=== PATIENT | female | born 1980 | race Caucasian/White ===

== ENCOUNTER 2016-06-26 08:07 | Emergency (ER) | payer OTHER ==
[~2016-06-26] VITALS: Ht 175.3 cm; Wt 80.7 kg
[2016-06-26 08:18] VITALS: BP 118/69
[2016-06-26] MEDS ORDERED: PRENTAB52 PO (08:24)
[2016-06-26 08:58] LABS: BASO % 0.7 % (0.0-1.0); EOS # 0.1 K/mm3 (0.0-0.50); EOS % 0.9 % (0.0-3.0); LARGE UNSTAINED CELL # 0.2 K/mm3 (0.0-0.4); LARGE UNSTAINED CELL % 2.3 % (0.0-4.0); LYMPH # 2.5 K/mm3 (1.5-4.5); MEAN CORPUSCULAR HEMOGLOBIN 31.5 pg (27.0-33.0); MEAN CORPUSCULAR HGB CONC 32.9 g/dl (32.0-36.5); MEAN CORPUSCULAR VOLUME 95.7 fl (80.0-96.0); MONO # 0.5 K/mm3 (0.0-0.8); MONO % 6.5 % (0.0-5.0); NEUTROPHILS # 4.4 K/mm3 (1.8-7.7); NEUTROPHILS % 58.6 % (36.0-66.0); PLATELET COUNT, AUTOMATED 283 k/mm3 (150-450); RED CELL DISTRIBUTION WIDTH 12.1 % (11.5-14.5); WHITE BLOOD COUNT 7.4 K/mm3 (4.0-10.0)
--- NOTE | 2016-06-26 10:47 | REP ---
Clinical: Pelvic pain and cramping for dating and viability. Technique: Transabdominal and transvaginal first trimester obstetrical ultrasound with color Doppler evaluation. Findings: Heterogeneous anteverted uterus measures 9.5 x 3.9 x 6.6 cm. The endometrial complex is thickened to 14.2 mm suggesting decidual reaction and a small presumed gestational sac with mean sac diameter of 3.8 mm corresponds to 5 weeks 1 day gestational age. No associated yolk sac or pole identified. Left ovary is normal in appearance and vascularity without torsion and measures 2.5 x 1.4 x 3.2 cm; RI equal 0.63. The right ovary is normal in vascularity without torsion and measures 4.3 x 3.3 x 3.9 cm; RI equal 0.42. 3.5 cm right ovarian cyst may reflect corpus luteum. Trace pelvic free fluid noted. Impression: 1. Thickened endometrium with possible small empty gestational sac. Differential diagnosis includes early and pseudogestational sac. Ectopic cannot be excluded. Correlation with serial HCG levels and repeat ultrasound may be warranted. 2. No evidence for ovarian torsion. 3.5 cm right ovarian cyst possible corpus luteum. Signed by Jimmy Mcdonald MD 06/26/2016 10:38 A
== END 2016-06-26 12:04 | disposition home or self-care (01) ==
LOC: M ED 08:38
DX: O23.90 Unspecified genitourinary tract infection in pregnancy, unspecified trimester (principal); Z87.59 Personal history of other complications of pregnancy, childbirth and the puerperium; O09.529 Supervision of elderly multigravida, unspecified trimester; O34.80 Maternal care for other abnormalities of pelvic organs, unspecified trimester; O99.89 Other specified diseases and conditions complicating pregnancy, childbirth and the puerperium; R93.8 Abnormal findings on diagnostic imaging of other specified body structures; Z79.899 Other long term (current) drug therapy

== ENCOUNTER → 2016-06-29 | Outpatient (CLI) | payer OTHER ==
[~2016-06-29] MED LIST: PRENTAB52 PO
--- NOTE | 2016-06-29 18:05 | REP ---
Emergency first trimester OB sonography: History: Gestational sac without IUP seen in the office. Question ectopic. Comparison sonography 06/26/2016 showed similar findings. Today's sonographic findings: Transabdominal and transvaginal scanning are performed. An intrauterine gestational sac is noted. This has dimensions of 8.3 x 9.7 x 4.9 cm. This corresponds with a 7-iisu-5-day gestational age estimate based on sac size diameter. No embryonic pole or yolk sac is visible. The intrauterine gestational sac appears more developed than on 06/26/2016 but no yolk sac or embryonic pole is visualized. We cannot confirm viability. No free fluid is noted. There is a 4.1 x 3.0 x 3.4 cm cystic area in the right ovary visible today. Right ovarian dimensions 5.7 x 3.5 x 4.0 cm inclusive of this. There is a 1.3 cm cystic area in the left ovary today. Left ovarian dimensions are 2.6 x 1.7 x 2.7 cm. Resistive indices are 0.5 and 0.3 in the right and left ovary respectively by Doppler. Impression: Sonographic findings remain nonspecific. There is a gestational sac in the uterine endometrium however no yolk sac or embryonic pole is seen. Early IUP versus blighted ovum. No direct evidence of ectopic however this cannot be completely excluded. There is a 4.1 cm simple appearing cyst in the right ovary. Signed by Job Carcamo MD 06/29/2016 06:07 P
== END ==
LOC: M RAD 16:36
PROVIDERS: ATTEND Student in an Organized Health Care Education/Training Program
DX: Z36 Encounter for antenatal screening of mother (principal)

== ENCOUNTER → 2016-07-09 | Outpatient (CLI) | payer OTHER ==
--- NOTE | 2016-07-09 13:30 | REP ---
FIRST TRIMESTER OB ULTRASOUND AND ENDOVAGINAL PROBE OB ULTRASOUND: 07/09/2016: Comparison: 06/29/2016, 06/26/2016. Clinical history: 6 weeks 2 days by LMP with two earlier studies showing gestational sac without contents. However, it was 10 days and 2 weeks ago so follow-up for progression of requested. Findings: Transabdominal and endovaginal probes were obtained. Bladder was 5.2 x 6.4 x 9.9 cm. There is a gestational sac in the body and fundus. Within the sac is a pole with a crown-rump length of 5 mm corresponding to 6 weeks 2 days. It has heart activity at 111. There is no evidence of a subchorionic bleed. In the right adnexal region, the ovary measures 3.9 x 4.2 x 3.3 cm. There is a 2.7 cm corpus luteum cyst on the right side. Left ovary is 2.6 x 1.3 x 2.4 cm and has a dominant follicle up to 12 ml. No pelvic free fluid. Blood flow seen in both ovaries with Doppler tracing showing resistive index 0.54 on the left and 0.49 on the right. Impression: 1. Single intrauterine gestation with a gestational sac in the body and fundus and pole at 6 weeks 2 days size giving EDC 03/02/2017. heart rate is 111. No subchorionic bleed. No free fluid in the cul-de-sac. 2. Right ovary contains 2.7 cm corpus luteum cyst. No free fluid. No torsion.3. Left ovary with a dominant follicle up to 12 mm, no torsion. Signed by Isra Winchester MD 07/09/2016 03:04 P
== END ==
LOC: M RAD 11:21
PROVIDERS: ATTEND Student in an Organized Health Care Education/Training Program
DX: Z34.81 Encounter for supervision of other normal pregnancy, first trimester (principal)